=== PATIENT | male | born 1975 | race Caucasian/White ===

== ENCOUNTER 2021-08-25 13:39 | Emergency (ER) | payer BC ==
--- NOTE | 2021-08-25 14:01 | EDM.PDOC ---
ED HPI GENERAL MEDICAL PROBLEM - General Chief Complaint: Chest Pain Stated Complaint: CHEST PAIN Time Seen by Provider: 08/25/21 13:40 Source of Information: Reports: Patient History Limitations: Reports: No Limitations - History of Present Illness INITIAL COMMENTS - FREE TEXT/NARRATIVE: patient presented to the ER with a c/o CP that started 20 min ago. Denies doing anything stressful, it happened at work while walking. no h/o CAD. no h/o HTN or DM. no significant past medical. He admits being a smoker 0.5ppd. no fever or chills. no SOB. Reports symptoms have resolved upon arrival. no SOB. He described his pain as right sided, and radiated to the back. no more pain at the moment. - Related Data Allergies Allergy/AdvReac Type Severity Reaction Status Date / Time No Known Allergies Allergy Verified 08/25/21 14:15 Home Meds: Home Meds NK [No Known Home Meds] 08/25/21 [History] Past Medical History - Past Health History Medical/Surgical History: Denies Medical/Surgical History ED ROS GENERAL - Review of Systems Review Of Systems: See Below Constitutional: Reports: No Symptoms HEENT: Reports: No Symptoms Respiratory: Reports: No Symptoms Endocrine: Reports: No Symptoms GI/Abdominal: Reports: No Symptoms Musculoskeletal: Reports: No Symptoms Skin: Reports: No Symptoms Neurological: Reports: No Symptoms ED EXAM, GENERAL - Physical Exam Exam: See Below Exam Limited By: No Limitations General Appearance: Alert, WD/WN, No Apparent Distress Eye Exam: Bilateral Eye: EOMI, PERRL Head: Atraumatic Neck: Normal Inspection Respiratory/Chest: No Respiratory Distress, Lungs Clear Cardiovascular: Normal Peripheral Pulses, Regular Rate, Rhythm, No Edema GI/Abdominal: Normal Bowel Sounds, Soft, Non-Tender Back Exam: Normal Inspection Neurological: Alert, Oriented #1 Interpretation EKG Date: 08/25/21 Time: 13:45 Rhythm: NSR [place]: Normal P-Wave: Present QRS: Normal ST-T: Normal QT: Normal Comparison: NA - No Prior EKG Course - Vital Signs Last Recorded V/S: Last Vital Signs Temp 36.7 C 08/25/21 13:41 Pulse 81 08/25/21 13:41 Resp 18 08/25/21 13:41 BP 159/101 H 08/25/21 13:41 Pulse Ox 98 08/25/21 13:41 - Orders/Labs/Meds Orders: Active Orders 24 hr Category Date Time Status CXR [Chest 1V Frontal] [CR] Stat Exams 08/25/21 14:12 Ordered EKG 12 Lead [EK] Routine Ther 08/25/21 13:40 Ordered Labs: Laboratory Tests 08/25/21 08/25/21 Range/Units 13:54 13:54 WBC 10.8 (4.0-11.0) K/uL RBC 4.91 (4.50-6.50) M/uL Hgb 14.7 (13.0-18.0) g/dL Hct 43.1 (40.0-54.0) % MCV 88 (76-96) fL MCH 29.9 (27.0-32.0) pg MCHC 34.1 (31.0-35.0) g/dL RDW 13.1 (11.0-16.0) % Plt Count 280 (150-400) K/uL MPV 9.6 (6.0-10.0) fL Sodium 136 (136-145) mmol/L Potassium 3.8 (3.5-5.1) mmol/L Chloride 103 (98-107) mmol/L Carbon Dioxide 24.8 (21.0-32.0) mmol/L Anion Gap 12.0 (5.0-15.0) mmol/L BUN 12 (8-26) mg/dL Creatinine 1.03 (0.70-1.30) mg/dL Est Cr Clr Drug Dosing 90.57 mL/min Estimated GFR (MDRD) > 60 (>60) MLS/MIN BUN/Creatinine Ratio 11.7 (6-25) Glucose 93 (74-100) mg/dL Calcium 9.0 (8.5-10.1) mg/dL Troponin I < 0.017 (0.000-0.060) ng/mL - Re-Assessments/Exams Free Text/Narrative Re-Assessment/Exam: was connected to a monitor. EKG - NSR, no ischemic changes. no pain at the moment CBC + BMP + Trop were ordered - all WNL CXR - no acute findings. WNL no pain while in the ER Departure - Departure Time of Disposition: 14:50 Disposition: Home, Self-Care 01 Condition: Good Clinical Impression: Atypical chest pain, Smoking Instructions: Steps to Quit Smoking, [id number], Nonspecific Chest Pain, Adult, [id number] Referrals: PCP,None [Primary Care Provider] - Forms: ED Department Discharge Additional Instructions: - recommend smoking cessation - return to the ER if any concerns - recommend to make an appointment with a primary care provider for continuos future monitoring Sepsis Event Note (ED) - Focused Exam Vital Signs: Vital Signs Temp Pulse Resp BP Pulse Ox 08/25/21 13:41 36.7 C 81 18 159/101 H 98 - Problem List Review Problem List Initiated/Reviewed/Updated: Yes - My Orders Last 24 Hours: My Active Orders 08/25/21 13:40 EKG 12 Lead [EK] Routine 08/25/21 14:12 CXR [Chest 1V Frontal] [CR] Stat - Assessment/Plan Last 24 Hours: My Active Orders 08/25/21 13:40 EKG 12 Lead [EK] Routine 08/25/21 14:12 CXR [Chest 1V Frontal] [CR] Stat Plan: - recommend smoking cessation - return to the ER if any concerns - recommend to make an appointment with a primary care provider for continuos future monitoring
--- NOTE | 2021-08-25 17:59 | CR ---
DATE OF SERVICE: 08/25/21 CLINICAL DATA: chest pain AP CHEST: The heart size is normal. The lungs are clear. No pneumothorax. No pleural effusions. No evidence of acute intrathoracic disease. [id number] [facility]
== END 2021-08-25 14:57 | disposition home or self-care (01) ==
LOC: LB.ED 13:39
DX: R07.89 Other chest pain (principal); F17.210 Nicotine dependence, cigarettes, uncomplicated
CPT/HCPCS: 36415; 71045; 80048; 84484; 85027; 93005; 99285-25